=== PATIENT | female | born 1975 ===

== ENCOUNTER 2021-05-17 15:14 | Emergency (ER) | payer SELFPAY ==
[~2021-05-17] VITALS: Ht 157 cm; Wt 59.0 kg
[2021-05-17] MEDS ORDERED: ONDANSETRON 4 MG/2 ML (SDV) Z0FRAN IVP ONE (16:00)
[2021-05-17] MEDS ORDERED: KETOROLAC 30 MG/ML VIAL IVP ONE (16:00)
[2021-05-17] MEDS ORDERED: LACTATED RINGERS 1,000 ML IV SCH (16:00)
[2021-05-17 16:04] LABS: BASOPHILS % (AUTO) 0 % (0-10); EOSINOPHILS % (AUTO) 0 % (0-10); HEMATOCRIT 40 % (35-52); LYMPHOCYTES # (AUTO) 1.4 10^3/uL (1.0-4.0); LYMPHOCYTES % (AUTO) 10 % (12-44); MEAN CORPUSCULAR HEMOGLOBIN 33 pg (25-34); MEAN CORPUSCULAR HGB CONC 35 g/dL (32-36); MEAN CORPUSCULAR VOLUME 94 fL (80-99); MEAN PLATELET VOLUME 12.1 fL (9.0-12.2); MONOCYTES # (AUTO) 0.8 10^3/uL (0.0-1.0); MONOCYTES % (AUTO) 6 % (0-12); NEUTROPHILS # (AUTO) 11.3 10^3/uL (1.8-7.8); NEUTROPHILS % (AUTO) 83 % (42-75); PLATELET COUNT 246 10^3/uL (130-400); WHITE BLOOD COUNT 13.5 10^3/uL (4.3-11.0)
--- NOTE | 2021-05-17 16:07 | ED Abdominal Pain ---
General Chief Complaint: Abdominal/GI Problems Stated Complaint: RIGHT FLANK PAIN/UTI SYPTOMS Nursing Triage Note: AMB TO ED WITH C/O R SIDE PAIN ONSET LAST NIGHT WAS SENT BY [facility]. Source of Information: Patient Exam Limitations: No Limitations History of Present Illness Date Seen by Provider: May 17, 2021 Time Seen by Provider: 16:06 Initial Comments To ER by private vehicle with suprapubic and right flank pain sudden onset last evening at 5 PM she has had nausea and chills no fever she does have pain with urination and bloody urine. Denies possibility of . Timing/Duration: 1-2 Days Severity/Quality: Moderate Location: RLQ Radiation: No Radiation Activities at Onset: None Associated Symptoms: Fever/Chills, Nausea/Vomiting Allergies and Home Medications Allergies Coded Allergies: No Known Drug Allergies (Unverified , 05/17/21) Patient Home Medication List Home Medication List Reviewed: Yes Review of Systems Review of Systems Constitutional: see HPI EENTM: No Symptoms Reported Respiratory: No Symptoms Reported Cardiovascular: No Symptoms Reported Gastrointestinal: See HPI, Abdominal Pain Genitourinary: No Symptoms Reported Musculoskeletal: no symptoms reported Skin: no symptoms reported Psychiatric/Neurological: No Symptoms Reported Endocrine: No Symptoms Reported Hematologic/Lymphatic: No Symptoms Reported Past Mtlczzb-Ojwoci-Jhxhvt Hx Patient Social History Tobacco Use?: No Substance use?: No Immunizations Up To Date First/Initial COVID19 Vaccinat: UNKNOWN Second COVID19 Vaccination Thanh: UNKNOWN COVID19 Vaccine Farm Management Agent: ? Physical Exam Vital Signs Vital Signs - First Documented 05/17/21 15:23 Temp 36.2 Pulse 82 Resp 18 B/P (MAP) 126/74 (91) Pulse Ox 100 Capillary Refill : Less Than 3 Seconds Height/Weight/BMI Height: '" Weight: lbs. oz. kg; 23.00 BMI Method: General Appearance: WD/WN, no apparent distress Respiratory: no respiratory distress, no accessory muscle use Cardiovascular: regular rate, rhythm, no murmur Gastrointestinal: normal bowel sounds, soft, tenderness Extremities: normal range of motion, non-tender Neurologic/Psychiatric: alert, normal mood/affect, oriented x 3 Skin: normal color, warm/dry Progress/Results/Core Measures Results/Orders Lab Results Laboratory Tests Test 05/17/21 14:42 05/17/21 16:25 Range/Units White Blood Count 13.5 H 4.3-11.0 10^3/uL Red Blood Count 4.24 3.80-5.11 10^6/uL Hemoglobin 14.0 11.5-16.0 g/dL Hematocrit 40 35-52 % Mean Corpuscular Volume 94 80-99 fL Mean Corpuscular Hemoglobin 33 25-34 pg Mean Corpuscular Hemoglobin Concent 35 32-36 g/dL Red Cell Distribution Width 11.5 10.0-14.5 % Platelet Count 246 130-400 10^3/uL Mean Platelet Volume 12.1 9.0-12.2 fL Immature Granulocyte % (Auto) 0 % Neutrophils (%) (Auto) 83 H 42-75 % Lymphocytes (%) (Auto) 10 L 12-44 % Monocytes (%) (Auto) 6 0-12 % Eosinophils (%) (Auto) 0 0-10 % Basophils (%) (Auto) 0 0-10 % Neutrophils # (Auto) 11.3 H 1.8-7.8 10^3/uL Lymphocytes # (Auto) 1.4 1.0-4.0 10^3/uL Monocytes # (Auto) 0.8 0.0-1.0 10^3/uL Eosinophils # (Auto) 0.0 0.0-0.3 10^3/uL Basophils # (Auto) 0.0 0.0-0.1 10^3/uL Immature Granulocyte # (Auto) 0.1 0.0-0.1 10^3/uL Sodium Level 137 135-145 MMOL/L Potassium Level 3.8 3.6-5.0 MMOL/L Chloride Level 108 H 98-107 MMOL/L Carbon Dioxide Level 16 L 21-32 MMOL/L Anion Gap 13 5-14 MMOL/L Blood Urea Nitrogen 16 7-18 MG/DL Creatinine 1.28 0.60-1.30 MG/DL Estimat Glomerular Filtration Rate 46 BUN/Creatinine Ratio 13 Glucose Level 104 70-105 MG/DL Calcium Level 9.3 8.5-10.1 MG/DL Corrected Calcium 9.2 8.5-10.1 MG/DL Total Bilirubin 1.1 H 0.1-1.0 MG/DL Aspartate Amino Transf (AST/SGOT) 19 5-34 U/L Alanine Aminotransferase (ALT/SGPT) 21 0-55 U/L Alkaline Phosphatase 76 40-136 U/L Total Protein 7.3 6.4-8.2 GM/DL Albumin 4.1 3.2-4.5 GM/DL Serum Test, Qualitative NEGATIVE NEGATIVE Urine Color ORANGE Urine Clarity CLEAR Urine pH 7.5 5-9 Urine Specific [place] 1.010 L 1.016-1.022 Urine Protein NEGATIVE NEGATIVE Urine Glucose (UA) TRACE H NEGATIVE Urine Ketones 1+ H NEGATIVE Urine Nitrite POSITIVE H NEGATIVE Urine Bilirubin NEGATIVE NEGATIVE Urine Urobilinogen 1.0 < = 1.0 MG/DL Urine Leukocyte Esterase TRACE H NEGATIVE Urine RBC (Auto) TRACE-I H NEGATIVE Urine RBC NONE /HPF Urine WBC RARE /HPF Urine Squamous Epithelial Cells 2-5 /HPF Urine Crystals NONE /LPF Urine Bacteria TRACE /HPF Urine Casts NONE /LPF Urine Mucus NEGATIVE /LPF Urine Culture Indicated NO My Orders Orders - EL VICTORIA APRN Cbc With Automated Diff (05/17/21 15:53) Comprehensive Metabolic Panel (05/17/21 15:53) Hcg,Qualitative Serum (05/17/21 15:53) Ed Iv/Invasive Line Start (05/17/21 15:53) Ua Culture If Indicated (05/17/21 15:53) Abdomen/Kub 1view (05/17/21 15:53) Ct Abd/Pelvis Wo(Kidney Stone) (05/17/21 15:53) Ketorolac Injection (Toradol Injection) (05/17/21 16:00) Lactated Ringers (Lr 1000 Ml Iv Solution (05/17/21 16:00) Ondansetron Injection (Zofran Injectio (05/17/21 16:00) Medications Given in ED Current Medications Medications Dose Ordered Sig/Dawson Route Start Time Stop Time Status Last Admin Dose Admin Ketorolac Tromethamine 15 mg ONCE ONCE IVP 05/17/21 16:00 05/17/21 16:01 DC 05/17/21 16:11 15 MG Ondansetron HCl 8 mg ONCE ONCE IVP 05/17/21 16:00 05/17/21 16:01 DC 05/17/21 16:11 8 MG Vital Signs/I&O 05/17/21 15:23 Temp 36.2 Pulse 82 Resp 18 B/P (MAP) 126/74 (91) Pulse Ox 100 Blood Pressure Mean: 91 Departure Communication (Admissions) NAME: TAMANNA TAO [facility] REC#: [id number] PT STATUS: REG ER : 1975 PHYSICIAN: EL VICTORIA APRN ADMIT DATE: 05/17/21/ER Draft Date of Exam:05/17/21 CT ABD/PELVIS WO(KIDNEY STONE) PROCEDURE: CT urinary tract, rule out kidney stone. TECHNIQUE: Multiple contiguous axial images were obtained through the abdomen and pelvis without the use of intravenous contrast. Auto Exposure Controls were utilized during the CT exam to meet ALARA standards for radiation dose reduction. INDICATION: Right lower quadrant abdominal pain. COMPARISON: None. FINDINGS: The lung bases are clear. The liver, gallbladder, pancreas, spleen, adrenals and appendix are negative on this noncontrast exam. Moderate right hydronephrosis with a 0.2 cm renal stone in the right UVJ. Nonobstructing calyceal tip renal stones in the left kidney measure up to 0.5 cm. No left hydronephrosis. No lymphadenopathy. Reproductive structures are grossly negative. No free intraperitoneal air or fluid. No evidence of bowel obstruction. No acute osseous findings. IMPRESSION: 1. 0.2 cm renal stone in the right ureterovesicular junction resulting in moderate right hydronephrosis. 2. Nonobstructing calyceal tip renal stones in the left kidney. No left ureteral stones or hydronephrosis. Impression Primary Impression: Kidney stone Disposition: 01 HOME, SELF-CARE Condition: Stable Departure-Patient Inst. Decision time for Depature: 17:09 Referrals: [facility] (PCP/Family) Primary Care Physician Patient Instructions: Kidney Stone, Adult ED Add. Discharge Instructions: 1. Pain medication as directed. Return to ER if any concerns. Follow-up with your doctor next week. Scripts Hydrocodone/Acetaminophen (Hydrocodone-Acetamin 5-325 mg) 1 Each Tablet 1 TAB PO Q4H PRN for PAIN-MODERATE (5-7), #14 TAB Prov: EL VICTORIA APRN 05/17/21 Ketorolac Tromethamine (Ketorolac Tromethamine) 10 Mg Tablet 10 MG PO TID PRN for PAIN-MODERATE (5-7), #6 TAB Prov: EL VICTORIA APRN 05/17/21 Tamsulosin HCl (Flomax) 0.4 Mg Cap 0.4 MG PO DAILY, #10 CAP Prov: EL VICTORIA APRN 05/17/21 Cefuroxime Axetil (Cefuroxime) 250 Mg Tablet 250 MG PO BID, #10 TAB Prov: EL VICTORIA APRN 05/17/21 Work/School Note: Work Release Form Date Seen in the Emergency Department: May 17, 2021 Return to Work: May 19, 2021 EL VICTORIA APRN May 17, 2021 16:07
[2021-05-17 16:08] LABS: ALBUMIN 4.1 GM/DL (3.2-4.5); POTASSIUM 3.8 MMOL/L (3.6-5.0)
[2021-05-17 16:09] LABS: CALCIUM 9.3 MG/DL (8.5-10.1)
[2021-05-17 16:10] LABS: TOTAL PROTEIN 7.3 GM/DL (6.4-8.2)
[2021-05-17 16:12] LABS: BILIRUBIN,TOTAL 1.1 MG/DL (0.1-1.0)
[2021-05-17 16:14] LABS: CREATININE SERUM 1.28 MG/DL (0.60-1.30)
[2021-05-17 16:40] LABS: BILIRUBIN,URINE NEGATIVE (NEGATIVE); CLARITY,URINE CLEAR; COLOR,URINE ORANGE; GLUCOSE, URINE (UA) TRACE (NEGATIVE); KETONES,URINE 1+ (NEGATIVE); LEUKOCYTE ESTERASE ,URINE TRACE (NEGATIVE); NITRITE,URINE POSITIVE (NEGATIVE); PH,URINE 7.5 (5-9); PROTEIN,URINE NEGATIVE (NEGATIVE)
[2021-05-17 16:51] LABS: BACTERIA,URINE TRACE /HPF; WBC,URINE RARE /HPF
--- NOTE | 2021-05-17 16:59 | Diagnostic Imaging Report ---
INDICATION: Right lower quadrant pain. TECHNIQUE: Abdominal film obtained at 04:51 p.m. FINDINGS: The abdominal bowel gas pattern is unremarkable. There is no overt obstruction or ileus. There are small calcifications overlying the pelvis which could be phleboliths, small stones are not excluded. There is a small calcification overlying the left kidney, which may represent stone. This measured about 4 mm. Bony structures are unremarkable. IMPRESSION: Unremarkable bowel gas pattern. Small calcifications are seen overlying the pelvis which could be phleboliths, although distal ureteral stone is difficult to exclude. There is a small calcification overlying the superior pole of the left kidney. Dictated by: Dictated on workstation # [id number]
--- NOTE | 2021-05-17 17:04 | Diagnostic Imaging Report ---
PROCEDURE: CT urinary tract, rule out kidney stone. TECHNIQUE: Multiple contiguous axial images were obtained through the abdomen and pelvis without the use of intravenous contrast. Auto Exposure Controls were utilized during the CT exam to meet ALARA standards for radiation dose reduction. INDICATION: Right lower quadrant abdominal pain. COMPARISON: None. FINDINGS: The lung bases are clear. The liver, gallbladder, pancreas, spleen, adrenals and appendix are negative on this noncontrast exam. Moderate right hydronephrosis with a 0.2 cm renal stone in the right UVJ. Nonobstructing calyceal tip renal stones in the left kidney measure up to 0.5 cm. No left hydronephrosis. No lymphadenopathy. Reproductive structures are grossly negative. No free intraperitoneal air or fluid. No evidence of bowel obstruction. No acute osseous findings. IMPRESSION: 1. 0.2 cm renal stone in the right ureterovesicular junction resulting in moderate right hydronephrosis. 2. Nonobstructing calyceal tip renal stones in the left kidney. No left ureteral stones or hydronephrosis. Dictated by: Dictated on workstation # [id number]
[2021-05-17] MEDS ORDERED: CEFU250T80 PO (17:11)
[2021-05-17] MEDS ORDERED: TMSL.4C PO (17:11)
[2021-05-17] MEDS ORDERED: KETO10TA PO (17:11)
[2021-05-17] MEDS ORDERED: ACHD5005 PO (17:11)
[2021-05-17 17:36] VITALS: BP 121/72
== END 2021-05-17 17:36 | disposition home or self-care (01) ==
LOC: EDUNIT# 15:14 → ER 15:20
DX: N13.2 Hydronephrosis with renal and ureteral calculous obstruction (principal)
CPT/HCPCS: 36415; 74018; 74176; 80053; 81000; 84703; 85025; 96374; 96375

== ENCOUNTER 2023-01-16 12:28 | Observation (INO) | payer SELFPAY ==
[~2023-01-16 12:28] MED LIST: ACHD5005 PO; CEFU250T80 PO; KETO10TA PO; TMSL.4C PO
[2023-01-16 13:12] VITALS: BP 112/72
[2023-01-16] MEDS ORDERED: NS IV 1000 ML 1,000 ML IV SCH (13:15)
[2023-01-16] MEDS ORDERED: ONDANSETRON INJECTION 4 MG/2 ML (SDV) IVP PRN (13:15)
[2023-01-16] MEDS ORDERED: oxyCODONE IMMEDIATE RELEASE 5 MG TABLET PO PRN (13:15)
[2023-01-16] MEDS ORDERED: morphine INJ 4 MG/ML 1 ML (VIAL/SYRINGE) IV PRN (13:15)
[2023-01-16] MEDS ORDERED: NALOXONE 0.4 MG/ML 1 ML VIAL IV PRN (13:15)
[2023-01-16] MEDS ORDERED: ONDANSETRON 4 MG ORAL DISSOLVE TABLET PO PRN (13:15)
[2023-01-16 13:59] LABS: BASOPHILS % (AUTO) 0 % (0-10); EOSINOPHILS % (AUTO) 0 % (0-10); HEMATOCRIT 38 % (35-52); HEMOGLOBIN 13.3 g/dL (11.5-16.0); LYMPHOCYTES # (AUTO) 0.9 10^3/uL (1.0-4.0); LYMPHOCYTES % (AUTO) 7 % (12-44); MEAN CORPUSCULAR HEMOGLOBIN 34 pg (25-34); MEAN CORPUSCULAR HGB CONC 36 g/dL (32-36); MEAN CORPUSCULAR VOLUME 95 fL (80-99); MEAN PLATELET VOLUME 11.4 fL (9.0-12.2); MONOCYTES # (AUTO) 0.7 10^3/uL (0.0-1.0); MONOCYTES % (AUTO) 5 % (0-12); NEUTROPHILS # (AUTO) 11.8 10^3/uL (1.8-7.8); NEUTROPHILS % (AUTO) 87 % (42-75); PLATELET COUNT 197 10^3/uL (130-400); WHITE BLOOD COUNT 13.6 10^3/uL (4.3-11.0)
[2023-01-16] MEDS ORDERED: ENOXAPARIN 40 MG/0.4 ML SYRINGE SC SCH (14:00)
[2023-01-16 14:17] LABS: LYMPHOCYTES % (MANUAL) 7 %; MONOCYTES % (MANUAL) 9 %; NEUTROPHILS % (MANUAL) 84 %; RBC MORPH NORMAL
[2023-01-16] MEDS: NS IV 1000 ML 1,000 ML IV SCH ×3 (14:21→23:13)
[2023-01-16 14:25] LABS: ALBUMIN 3.8 GM/DL (3.2-4.5); BILIRUBIN,TOTAL 1.2 MG/DL (0.1-1.0); CALCIUM 8.5 MG/DL (8.5-10.1); CREATININE SERUM 1.22 MG/DL (0.60-1.30); POTASSIUM 3.9 MMOL/L (3.6-5.0); TOTAL PROTEIN 6.4 GM/DL (6.4-8.2)
[2023-01-16] MEDS: ACETAMINOPHEN 500 MG TABLET PO SCH ×2 (16:19→23:13)
[2023-01-16] MEDS: IBUPROFEN 200 MG TABLET PO SCH ×2 (16:19→23:13)
--- NOTE | 2023-01-16 16:24 | History & Physical ---
PABLO NGUYEN 01/16/23 1624: HPI History of Present Illness: Patient presented to [facility] on 01/15 with concerns of left sided back pain that radiated into her left lower abdomen and groin. A CT scan was done showing kidney stones. She was sent home with pain medications and was told the stone should pass. This morning the patient woke up in severe pain. She presented to [facility] again and they decided to direct admit patient to the hospital for pain relief. On admission, she continued endorsing left flank pain that radiated to her groin. She had right sided kidney stones 3 years ago that passed on their own. Endorses nausea, vomiting, shortness of breath, hematuria, and diarrhea. Denies headache, vision changes, chest pain, or constipation. Source: patient Exam Limitations: no limitations Date seen by provider: Jan 16, 2023 Time Seen by Provider: 15:30 Attending Physician [facility] PCP Admitting Physician: Jihan Villar MD Attending Physician: Jihan Villar MD Consult Date of Admission Jan 16, 2023 at 12:48 Home Medications Home Medications Reviewed patient Home Medication Reconciliation performed by pharmacy medication reconciliations science technician and/or nursing. Patients Allergies have been reviewed. Allergies Uncoded Allergies: PCN (Adverse Reaction, Mild, Vomiting, 01/16/23) YEZ-Kikkkl-Dygppk Hx Patient Social History Smoking Status: Never a Smoker 2nd Hand Smoke Exposure: No Alcohol Use?: No Immunizations Up To Date Influenza Vaccine Up-to-Date: No; Not Current First/Initial COVID19 Vaccinat: UNKNOWN Second COVID19 Vaccination Thanh: UNKNOWN Past Medical History Right sided kidney stones 3 years ago Insomnia Family Medical History Significant Family History: No Pertinent Family Hx Review of Systems ([facility]) Constitutional: see HPI EENTM: see HPI Respiratory: see HPI Cardiovascular: see HPI Gastrointestinal: see HPI Genitourinary: see HPI Musculoskeletal: no symptoms reported Skin: no symptoms reported Psychiatric/Neurological: No Symptoms Reported Reviewed Test Results Reviewed Test Results Lab Laboratory Tests 01/16/23 13:48: White Blood Count 13.6H, Red Blood Count 3.96, Hemoglobin 13.3, Hematocrit 38, Mean Corpuscular Volume 95, Mean Corpuscular Hemoglobin 34, Mean Corpuscular Hemoglobin Concent 36, Red Cell Distribution Width 12.1, Platelet Count 197, Mean Platelet Volume 11.4, Immature Granulocyte % (Auto) 1, Neutrophils (%) (Auto) 87H, Lymphocytes (%) (Auto) 7L, Monocytes (%) (Auto) 5, Eosinophils (%) (Auto) 0, Basophils (%) (Auto) 0, Neutrophils # (Auto) 11.8H, Lymphocytes # (Auto) 0.9L, Monocytes # (Auto) 0.7, Eosinophils # (Auto) 0.0, Basophils # (Auto) 0.0, Immature Granulocyte # (Auto) 0.1, Neutrophils % (Manual) 84, Lymphocytes % (Manual) 7, Monocytes % (Manual) 9, Blood Morphology Comment NORMAL, Sodium Level 139, Potassium Level 3.9, Chloride Level 112H, Carbon Dioxide Level 19L, Anion Gap 8, Blood Urea Nitrogen 15, Creatinine 1.22, Estimat Glomerular Filtration Rate 56, BUN/Creatinine Ratio 12, Glucose Level 97, Calcium Level 8.5, Corrected Calcium 8.7, Magnesium Level 2.0, Total Bilirubin 1.2H, Aspartate Amino Transf (AST/SGOT) 13, Alanine Aminotransferase (ALT/SGPT) 15, Alkaline Phosphatase 56, Total Protein 6.4, Albumin 3.[address] Scan performed at [facility]: Left sided kidney stones Physical Exam-([facility]) Physical Exam Vital Signs VS - Last 72 Hours, by Label 01/16/23 01/16/23 13:12 14:22 Temp 36.1 Pulse 83 Resp 20 B/P (MAP) 112/72 (85) Pulse Ox 100 O2 Delivery Room Air Room Air Capillary Refill : General Appearance: moderate distress Respiratory: chest non-tender, lungs clear, normal breath sounds, no respiratory distress, no accessory muscle use Cardiovascular: regular rate, rhythm, no edema, no gallop, no JVD, no murmur Gastrointestinal: normal bowel sounds, soft, tenderness (LLQ tenderness to palpation) Back: no CVA tenderness Extremities: normal range of motion, non-tender, normal inspection, no pedal edema, normal capillary refill Skin: normal color, warm/dry Assessment/Plan Assessment/Plan Admission Status: Observation (1) Kidney stone Status: Acute Assessment & Plan: - CT Scan performed at [facility] on 01/15 indicated left sided kidney stones. - CBC upon admission indicated slight leukocytosis of 13.8 with 87% neutrophils. Unremarkable CMP - Pending urinalysis. Patient endorses gross hematuria upon urination - Received bolus of NS upon admission - Start maintenance fluids at 250ml/hr of NS - Started Flomax at .4mg PO daily - Continue Oxycodone, morphine, ibuprofen, and acetaminophen for pain relief - Continue Zofran for nausea/vomiting - Straining urine. Send kidney stone in for analysis if she passes it - Repeart CBC and CMP in AM. Monitor for signs of pyelonephritis (2) Leukocytosis Status: Acute Assessment & Plan: - Leukocytosis of 13.6 with 87% neutrophils upon admission - Monitor for any signs of systemic infection or pyelonephritis - Repeat CBC in the AM - U/A pending JIHAN VILLAR MD 01/16/23 1906: Home Medications Allergies Uncoded Allergies: PCN (Adverse Reaction, Mild, Vomiting, 01/16/23) Supervisory-Addendum Brief Supervisory Addendum I personally performed or re-performed the history, physical exam and treatment for the E/M. I discussed the case with the Medical Student, and concur with the Medical Student documentation of history, physical exam and treatment plan unless otherwise noted. PABLO NGUYEN Jan 16, 2023 16:24 JIHAN VILLAR MD Jan 16, 2023 19:06
[2023-01-16 16:39] VITALS: BP 116/69
[2023-01-16] MEDS ORDERED: TAMSULOSIN 0.4 MG (FLOMAX) CAP PO SCH (18:00)
[2023-01-16 18:18] LABS: BACTERIA,URINE FEW /HPF; BILIRUBIN,URINE NEGATIVE (NEGATIVE); CLARITY,URINE CLEAR; COLOR,URINE YELLOW; GLUCOSE, URINE (UA) NEGATIVE (NEGATIVE); KETONES,URINE 3+ (NEGATIVE); LEUKOCYTE ESTERASE ,URINE NEGATIVE (NEGATIVE); NITRITE,URINE NEGATIVE (NEGATIVE); PH,URINE 5.5 (5-9); PROTEIN,URINE NEGATIVE (NEGATIVE); SQUAMOUS EPITHELIAL CELL,UR 0-2 /HPF
[2023-01-16 20:31] VITALS: BP 102/58
[2023-01-17 00:01] VITALS: BP 106/67
[2023-01-17 04:30] VITALS: BP 115/61
[2023-01-17] MEDS: IBUPROFEN 200 MG TABLET PO SCH ×2 (05:45→13:11)
[2023-01-17] MEDS: ACETAMINOPHEN 500 MG TABLET PO SCH ×2 (05:45→13:17)
[2023-01-17] MEDS: NS IV 1000 ML 1,000 ML IV SCH ×3 (05:46→07:49)
[2023-01-17 06:32] LABS: BASOPHILS % (AUTO) 0 % (0-10); EOSINOPHILS # (AUTO) 0.1 10^3/uL (0.0-0.3); EOSINOPHILS % (AUTO) 1 % (0-10); HEMATOCRIT 34 % (35-52); HEMOGLOBIN 11.4 g/dL (11.5-16.0); LYMPHOCYTES # (AUTO) 2.1 10^3/uL (1.0-4.0); LYMPHOCYTES % (AUTO) 35 % (12-44); MEAN CORPUSCULAR HEMOGLOBIN 33 pg (25-34); MEAN CORPUSCULAR HGB CONC 33 g/dL (32-36); MEAN CORPUSCULAR VOLUME 99 fL (80-99); MEAN PLATELET VOLUME 11.8 fL (9.0-12.2); MONOCYTES # (AUTO) 0.5 10^3/uL (0.0-1.0); MONOCYTES % (AUTO) 8 % (0-12); NEUTROPHILS # (AUTO) 3.3 10^3/uL (1.8-7.8); NEUTROPHILS % (AUTO) 56 % (42-75); PLATELET COUNT 156 10^3/uL (130-400); POTASSIUM 3.9 MMOL/L (3.6-5.0); WHITE BLOOD COUNT 5.9 10^3/uL (4.3-11.0)
[2023-01-17 06:34] LABS: CALCIUM 7.7 MG/DL (8.5-10.1)
[2023-01-17 06:35] LABS: TOTAL PROTEIN 5.1 GM/DL (6.4-8.2)
[2023-01-17 06:37] LABS: BILIRUBIN,TOTAL 1.3 MG/DL (0.1-1.0)
[2023-01-17 06:38] LABS: CREATININE SERUM 0.73 MG/DL (0.60-1.30)
[2023-01-17 08:05] VITALS: BP 112/67
[2023-01-17] MEDS ORDERED: TMSL.4C PO (11:24)
[2023-01-17] MEDS ORDERED: ACHD5005 PO (11:24)
[2023-01-17] MEDS ORDERED: KETO10TA PO (11:24)
--- NOTE | 2023-01-17 11:27 | Discharge Summary ---
Discharge [facility] Reconcile Patient Problems Problems Reviewed?: Yes Discharge Medications New, Converted or Re-Newed RX: Transmitted to Pharmacy Changed Medications: Hydrocodone/Acetaminophen (Hydrocodone-Acetamin 5-325 mg) 5 Mg-325 Mg Tablet 1 TAB PO Q4H PRN for PAIN-MODERATE (5-7), #6 TAB (Changed from: Hydrocodone/Acetaminophen (Hydrocodone-Acetamin 5-325 mg) 1 Each Tablet 1 Tab PO Q4H PRN PAIN-MODERATE (5-7) #14 TAB) Continued Medications: Ketorolac Tromethamine (Ketorolac Tromethamine) 10 Mg Tablet 10 MG PO TID PRN for PAIN-MODERATE (5-7), #6 TAB (This prescription has been renewed) Tamsulosin HCl (Flomax) 0.4 Mg Cap 0.4 MG PO DAILY, #10 CAP (This prescription has been renewed) Discontinued Medications: Cefuroxime Axetil (Cefuroxime) 250 Mg Tablet 250 MG PO BID, #10 TAB Patient Instructions Goal/Follow Up Appt: With PCP Return to The Hospital For: New or worsening symptoms Activity & Diet Discharge Diet: No Restrictions Activity as Tolerated: Yes ANGELICA CHOI MD Jan 17, 2023 11:26
[2023-01-17 12:13] VITALS: BP 118/77
[2023-01-17 13:20] VITALS: BP 118/77
--- NOTE | 2023-01-17 13:54 | Discharge Summary ---
PABLO NGUYEN 01/17/23 1353: Diagnosis/Chief Complaint Date of Admission Jan 16, 2023 at 12:48 Date of Discharge Jan 17, 2023 at 13:20 Admission Diagnosis Admission Diagnosis Kidney stone Discharge Diagnosis Kidney stone Problems/Diagnosis: (1) Kidney stone Assessment & Plan: - CT Scan performed at [facility] on 01/15 indicated left sided kidney stones. - Leukocytosis present on admission has resolved - UA showed 3+ ketones, 5-10 RBC and a few bacteria - Flomax .4mg PO daily prescribed for outpatient use to help pass kidney stone - Hydrocodone/Acetaminophen PRN and Ketorolac PRN prescribed for outpatient use for pain control - Advised patient to look for stones after she urinates. If she is able to collect them, advised her to take them to [facility] so they can be sent in for analysis - Advised patient to stay well hydrated and drink plenty of water. This will help pass the stone and prevent future stone formation. Status: Resolved (2) Leukocytosis Assessment & Plan: - Leukocytosis of 13.6 with 87% neutrophils upon admission - WBC count normalized to 5.9 today Status: Resolved Resolution Date/Time: 01/17/23 @ 13:54 (3) Hyperbilirubinemia Assessment & Plan: - Patient had bilirubin level of 1.2 on 01/16 and it increased to 1.3 on 01/17 - Patient is asymptomatic but we advised her to follow-up on this issue with her PCP in the outpatient setting Status: Acute Chief Complaint/HPI Chief Complaint/HPI Patient presented to [facility] on 01/15 with concerns of left sided back pain that radiated into her left lower abdomen and groin. A CT scan was done showing kidn ey stones. She was sent home with pain medications and was told the stone should pass. This morning the patient woke up in severe pain. She presented to [facility] again and they decided to direct admit patient to the hospital for pain relief. On admission, she continued endorsing left flank pain that radiated to her groin. She had right sided kidney stones 3 years ago that passed on their own. Endorses nausea, vomiting, shortness of breath, hematuria, and diarrhea. Denies headache, vision changes, chest pain, or constipation. Discharge Summary-Simple/Stand Consultations Discharge Physical Examination Allergies: Uncoded Allergies: PCN (Adverse Reaction, Mild, Vomiting, 01/16/23) Vitals & I&Os Vital Sign - Last 12Hours Date Time Temp Pulse Resp B/P (MAP) Pulse Ox O2 Delivery O2 Flow Rate FiO2 01/17/23 13:20 37.3 100 16 118/77 100 Room Air Intake and Output 01/17/23 00:00 Intake Total 2840 ml Balance 2840 ml General Appearance: Alert, Oriented X3 HEENT: Atraumatic Respiratory: Clear to Auscultation, Normal Air Movement Cardiovascular: Regular Rate, Normal S1, Normal S2, No Murmurs Abdominal: Normal Bowel Sounds, Soft, No Tenderness, No Hepatosplenomegaly, No Masses Extremities: No Clubbing, No Cyanosis, No Edema, Normal Pulses, No Tenderness/Swelling Skin: No Rashes, No Breakdown, No Significant Lesion Neuro: Normal Gait, Normal Speech Psych/Mental Status: Mental Status NL, Mood NL Hospital Course Was the Problem List Reviewed?: Yes See problem list. Radiology Reviewed CT Scan performed at [facility]: Left sided kidney stones Discharge Instructions to patient/family Please see electronic discharge instructions given to patient. Discharge Medications Reviewed and agree with Discharge Medication list on patient's Discharge Instruction sheet ANGELICA CHOI MD 01/17/23 1858: Discharge Summary-Simple/Stand Discharge Physical Examination Allergies: Uncoded Allergies: PCN (Adverse Reaction, Mild, Vomiting, 01/16/23) Supervisory-Addendum Brief Supervisory Addendum I personally performed or re-performed the history, physical exam and treatment for the E/M. I discussed the case with the Medical Student, and concur with the Medical Student documentation of history, physical exam and treatment plan unless otherwise noted. PABLO NGUYEN Jan 17, 2023 13:53 ANGELICA CHOI MD Jan 17, 2023 18:58
== END 2023-01-17 11:27 | disposition home or self-care (01) ==
LOC: UNDOADMOB 12:48 → 4TH 12:48 → UNDODISOB 01-17 11:27
PROVIDERS: ADMIT Family Medicine; ATTEND Family Medicine
DX: N20.0 Calculus of kidney (principal); D72.829 Elevated white blood cell count, unspecified; E80.6 Other disorders of bilirubin metabolism
CPT/HCPCS: 80053 ×2; 81000; 83605; 83735; 85007; 85025; 85027; 87088; 96361; 96372; 96374; G0378; G0379; 36415